=== PATIENT | male | born 1945 | race Hispanic/Latino ===

== ENCOUNTER → 2024-02-21 | Outpatient (CLI) | payer SELFPAY ==
[~2024-02-21] MED LIST: IOHEXOL 350 MG/ML 100ML INFUS..BTL IV ONE
== END | disposition home or self-care (01) ==
LOC: RAH 09:03
PROVIDERS: ATTEND Internal Medicine
DX: I65.21 Occlusion and stenosis of right carotid artery (principal); I10 Essential (primary) hypertension; I77.9 Disorder of arteries and arterioles, unspecified; I44.0 Atrioventricular block, first degree
CPT/HCPCS: 70498; Q9967